=== PATIENT | female | born 1980 | race Caucasian/White ===

== ENCOUNTER 2021-06-11 09:51 | Inpatient (IN) ==
[2021-06-11] MEDS ORDERED: methylPREDNISolone 125 MG/2 ML VIAL IVP ONE (09:57)
[2021-06-11] MEDS ORDERED: Ipratropium/Albuterol Neb 3 ML IH ONE (09:57)
[2021-06-11 10:14] LABS: ABG Base Excess 6 mEq/L (-2 to 3); ABG HCO3 32 mEq/L (21-27); ABG Oxygen Saturation 96 % (95-98); ABG PCO2 52 mmHg (35-45); ABG PH 7.39 pH Units (7.32-7.45); ABG PO2 81 mmHg (85-104); ABG TCO2 33 mEq/L (20-26)
[2021-06-11] MEDS ORDERED: Isovue-370 500 ML BOTTLE IVP ONE (10:17)
[2021-06-11 10:29] LABS: Basophils # 0.1 K/mcL (0.0-0.2); Basophils % 0.4 %; Eosinophils # 0.4 K/mcL (0.0-0.6); Eosinophils % 1.8 %; Hematocrit 39.9 % (35.3-44.9); Hemoglobin 11.9 g/dL (11.5-15.4); Immature Granulocytes % 1.1 % (0-4); Lymphocytes # 5.4 K/mcL (0.6-4.6); Lymphocytes % 27.5 %; Mean Corpuscular HGB Conc 29.8 g/dL (31.6-35.5); Mean Corpuscular Hemoglobin 23.1 pg (28.0-33.3); Mean Corpuscular Volume 77.3 fL (83.0-100.0); Monocytes # 1.1 K/mcL (0.0-1.3); Monocytes % 5.4 %; Neutrophils # 12.6 K/mcL (1.6-8.9); Platelet Count 382 K/mcL (140-400); Red Blood Count 5.16 M/mcL (3.82-4.97); Red Cell Distribution Width 17.3 % (11.5-14.5); Segmented Neutrophils % 63.8 %; White Blood Count 19.7 K/mcL (4.3-11.1)
[2021-06-11 10:31] LABS: Prothrombin Time 10.9 Seconds (9.4-12.1)
[2021-06-11 10:33] LABS: Activated Partial Thrombo Time 28.2 Seconds (26.0-36.0)
[2021-06-11] MEDS ORDERED: levoFLOXacin 750 MG/150 ML 750 MG/150 ML BAG IVPB ONE (10:41)
[2021-06-11] MEDS ORDERED: 0.9 % Sodium Chloride 1,000 ML IV ONE (10:41)
[2021-06-11 10:42] LABS: Alanine Aminotransferase 18 Units/L (7-52); Albumin 3.6 g/dL (3.5-5.7); Albumin/Globulin Ratio 1.2 (1.1-2.2); Alkaline Phosphatase 73 Units/L (34-104); Aspartate Amino Transferase 10 Units/L (13-39); BUN/Creatinine Ratio 15 (6-26); Bilirubin,Indirect 0.3 mg/dL (0.0-1.0); Bilirubin,Total 0.3 mg/dL (0.3-1.0); Blood Urea Nitrogen 15 mg/dL (6-20); Calcium 9.1 mg/dL (8.6-10.3); Carbon Dioxide 30 mEq/L (23-29); Chloride 99 mEq/L (98-107); Globulin 3.1 g/dL (2.4-3.5); Glucose 171 mg/dL (70-105); Osmolality,Calculated 289 (280-300); Potassium 4.1 mEq/L (3.5-5.1); Sodium 137 mEq/L (136-145); Total Protein 6.7 g/dL (6.4-8.9); Troponin I < 0.03 ng/mL (< 0.04); eGFR For African Americans > 60 (> 60); eGFR For Non-African Americans > 60 (> 60)
[2021-06-11 11:10] LABS: Large Platelets Present (Not Present); Platelet Estimate Normal (Normal)
[2021-06-11 11:11] LABS: Anisocytosis 1+ (Not Present)
[2021-06-11 11:35] LABS: Influenza A PCR Negative (Negative); Influenza B PCR Negative (Negative); Resp. Syncytial Virus PCR Negative (Negative)
[2021-06-11 11:39] LABS: SARS-CoV-2 by PCR (In House) Negative (Negative)
[2021-06-11] MEDS ORDERED: Albuterol 2.5 MG/3 ML NEBULIZER IH PRN (14:09)
[2021-06-11] MEDS ORDERED: Naloxone 0.4 MG/ML INJ IVP PRN (14:12)
[2021-06-11] MEDS ORDERED: Acetaminophen 325 MG TABLET PO PRN (14:12)
[2021-06-11] MEDS ORDERED: *HR* Dextrose 50 % in Water (Syg) 50 ML SYRINGE IVP PRN (14:15)
[2021-06-11] MEDS ORDERED: Dextrose 4 GM Chewable Tablets PO PRN ×2 (14:15)
[2021-06-11] MEDS ORDERED: D5% in Water 1,000 ML IVC PRN (14:15)
[2021-06-11 15:26] LABS: Adenovirus Not Detected (Not Detect); Bordetella Pertussis Not Detected (Not Detect); Chlamydophila pneumoniae Not Detected (Not Detect); Coronavirus 229E Not Detected (Not Detect); Coronavirus HKU1 Not Detected (Not Detect); Coronavirus NL63 Not Detected (Not Detect); Coronavirus OC43 Not Detected (Not Detect); Human Metapneumovirus Not Detected (Not Detect); Human Rhinovirus/Enterovirus Not Detected (Not Detect); Influenza A Subtype 2009 H1 Not Detected (Not Detect); Influenza B Not Detected (Not Detect); Mycoplasma pneumoniae Not Detected (Not Detect); Parainfluenza Virus 1 Not Detected (Not Detect); Parainfluenza Virus 2 Not Detected (Not Detect); Parainfluenza Virus 3 DETECTED (Not Detect); Parainfluenza Virus 4 Not Detected (Not Detect); Respiratory Syncytial Virus Not Detected (Not Detect); SARS-CoV-2 Not Detected (Not Detect)
[2021-06-11] MEDS: Albuterol 2.5 MG/3 ML NEBULIZER IH SCH ×2 (15:36→20:37)
[2021-06-11] MEDS: MethylPREDNISolone 40 MG/ML VIAL IVP SCH ×2 (15:46→20:47)
[2021-06-11] MEDS ORDERED: Vancomycin 2,000 MG/520 ML IV.SOLN IVPB SCH (16:00)
[2021-06-11 18:47] LABS: VBG HCO3 27 mEq/L (21-27); VBG PCO2 36 mmHg (41-51); VBG PH 7.48 pH Units (7.32-7.42); VBG PO2 121 mmHg (25-50)
[2021-06-11] MEDS: Insulin LISPRO 300 UNITS/3 ML VIAL SUBQ SCH (19:51)
[2021-06-11] MEDS: *HR* Heparin 5,000 UNIT/ML VIAL SQ SCH (19:51)
[2021-06-12] MEDS: Albuterol 2.5 MG/3 ML NEBULIZER IH SCH ×2 (00:03→04:16)
[2021-06-12] MEDS: Insulin LISPRO 300 UNITS/3 ML VIAL SUBQ SCH ×3 (02:02→17:41)
[2021-06-12] MEDS ORDERED: Vancomycin 2,000 MG/520 ML IV.SOLN IVPB SCH (06:00)
[2021-06-12] MEDS: MethylPREDNISolone 40 MG/ML VIAL IVP SCH ×3 (06:15→21:40)
[2021-06-12] MEDS: *HR* Heparin 5,000 UNIT/ML VIAL SQ SCH ×2 (06:15→21:41)
[2021-06-12 06:44] LABS: Basophils % 0.1 %; Hemoglobin 11.7 g/dL (11.5-15.4); Immature Granulocytes % 1.2 % (0-4); Lymphocytes # 2.3 K/mcL (0.6-4.6); Lymphocytes % 14.9 %; Mean Corpuscular Hemoglobin 23.3 pg (28.0-33.3); Mean Corpuscular Volume 77.7 fL (83.0-100.0); Mean Platelet Volume 10.9 fL (9.4-12.4); Monocytes # 0.8 K/mcL (0.0-1.3); Monocytes % 4.8 %; Neutrophils # 12.4 K/mcL (1.6-8.9); Platelet Count 367 K/mcL (140-400); Red Blood Count 5.02 M/mcL (3.82-4.97); Red Cell Distribution Width 17.1 % (11.5-14.5); White Blood Count 15.7 K/mcL (4.3-11.1)
[2021-06-12 07:08] LABS: Alanine Aminotransferase 16 Units/L (7-52); Albumin 3.8 g/dL (3.5-5.7); Albumin/Globulin Ratio 1.4 (1.1-2.2); Alkaline Phosphatase 69 Units/L (34-104); Aspartate Amino Transferase 7 Units/L (13-39); BUN/Creatinine Ratio 18 (6-26); Bilirubin,Total 0.3 mg/dL (0.3-1.0); Blood Urea Nitrogen 12 mg/dL (6-20); Calcium 9.1 mg/dL (8.6-10.3); Carbon Dioxide 30 mEq/L (23-29); Chloride 99 mEq/L (98-107); Globulin 2.7 g/dL (2.4-3.5); Glucose 177 mg/dL (70-105); Osmolality,Calculated 290 (280-300); Sodium 138 mEq/L (136-145); Total Protein 6.5 g/dL (6.4-8.9); eGFR For African Americans > 60 (> 60); eGFR For Non-African Americans > 60 (> 60)
[2021-06-12] MEDS ORDERED: Ipratropium/Albuterol Neb 3 ML ONE (07:36)
[2021-06-12] MEDS: Ipratropium/Albuterol Neb 3 ML IH SCH ×4 (08:07→20:24)
[2021-06-12] MEDS: levoFLOXacin 750 MG/150 ML 750 MG/150 ML BAG IVPB SCH (09:22)
[2021-06-12] MEDS: Chlorhexidine Rinse 15 ML MOUTHWASH MM SCH ×2 (09:23→21:40)
[2021-06-12] MEDS: Lactobacillus 1 EACH CAP.SPRINK PO SCH ×2 (09:23→21:40)
[2021-06-12] MEDS: FLUoxetine 20 MG CAPSULE PO SCH (09:23)
[2021-06-12] MEDS: Furosemide 40 MG TABLET PO SCH (09:23)
[2021-06-12 09:34] LABS: Estimated Average Glucose 148 mg/dl; Hemoglobin A1C 6.8 %
[2021-06-12] MEDS ORDERED: Dextrose 4 GM Chewable Tablets PO PRN ×2 (10:54)
[2021-06-12] MEDS ORDERED: D5% in Water 1,000 ML IVC PRN (10:54)
[2021-06-12] MEDS ORDERED: *HR* Dextrose 50 % in Water (Syg) 50 ML SYRINGE IVP PRN (10:54)
[2021-06-12] MEDS: Budesonide/Formoterol 160/4.5 1 PUFF INH IH SCH ×2 (11:21→20:24)
[2021-06-12] MEDS ORDERED: Insulin LISPRO 300 UNITS/3 ML VIAL SUBQ SCH ×2 (11:30→21:00)
[2021-06-12] MEDS ORDERED: Insulin Human Regular 5 UNIT in 0.9 % Sodium Chloride 10 ML IV ONE (11:47)
[2021-06-12] MEDS: Insulin DETEMIR 100 UNIT/ML X5UNITS SUBQ SCH (21:41)
[2021-06-13] MEDS: Ipratropium/Albuterol Neb 3 ML IH SCH ×7 (00:14→23:45)
[2021-06-13] MEDS: Ondansetron 4 MG/2 ML VIAL IVP PRN (03:55)
[2021-06-13] MEDS: MethylPREDNISolone 40 MG/ML VIAL IVP SCH (06:11)
[2021-06-13] MEDS: *HR* Heparin 5,000 UNIT/ML VIAL SQ SCH ×3 (06:11→20:32)
[2021-06-13 06:18] LABS: Basophils % 0.1 %; Hematocrit 36.9 % (35.3-44.9); Hemoglobin 10.9 g/dL (11.5-15.4); Immature Granulocytes % 1.4 % (0-4); Lymphocytes % 16.2 %; Mean Corpuscular HGB Conc 29.5 g/dL (31.6-35.5); Mean Corpuscular Volume 77.8 fL (83.0-100.0); Mean Platelet Volume 10.7 fL (9.4-12.4); Monocytes # 1.2 K/mcL (0.0-1.3); Monocytes % 6.2 %; Neutrophils # 14.1 K/mcL (1.6-8.9); Platelet Count 358 K/mcL (140-400); Red Blood Count 4.74 M/mcL (3.82-4.97); Red Cell Distribution Width 17.2 % (11.5-14.5); Segmented Neutrophils % 76.1 %; White Blood Count 18.6 K/mcL (4.3-11.1)
[2021-06-13 06:39] LABS: Magnesium 2.1 mg/dL (1.6-2.6)
[2021-06-13 06:40] LABS: Alanine Aminotransferase 17 Units/L (7-52); Albumin 3.6 g/dL (3.5-5.7); Albumin/Globulin Ratio 1.4 (1.1-2.2); Alkaline Phosphatase 63 Units/L (34-104); Aspartate Amino Transferase 9 Units/L (13-39); BUN/Creatinine Ratio 24 (6-26); Bilirubin,Total 0.3 mg/dL (0.3-1.0); Blood Urea Nitrogen 16 mg/dL (6-20); Calcium 8.9 mg/dL (8.6-10.3); Carbon Dioxide 31 mEq/L (23-29); Chloride 100 mEq/L (98-107); Globulin 2.5 g/dL (2.4-3.5); Glucose 206 mg/dL (70-105); Osmolality,Calculated 293 (280-300); Potassium 4.1 mEq/L (3.5-5.1); Sodium 138 mEq/L (136-145); Total Protein 6.1 g/dL (6.4-8.9); eGFR For African Americans > 60 (> 60); eGFR For Non-African Americans > 60 (> 60)
[2021-06-13 06:52] LABS: Thyroid Stimulating Hormone 1.074 mcIU/mL (0.340-5.600)
[2021-06-13 07:02] LABS: Folate 9.4 ng/mL (3.0-16.0)
[2021-06-13] MEDS: Budesonide/Formoterol 160/4.5 1 PUFF INH IH SCH ×2 (08:25→20:14)
[2021-06-13] MEDS: Lactobacillus 1 EACH CAP.SPRINK PO SCH ×2 (10:24→20:32)
[2021-06-13] MEDS: FLUoxetine 20 MG CAPSULE PO SCH (10:24)
[2021-06-13] MEDS: Chlorhexidine Rinse 15 ML MOUTHWASH MM SCH (10:24)
[2021-06-13] MEDS: Furosemide 40 MG TABLET PO SCH (10:24)
[2021-06-13] MEDS: levoFLOXacin 750 MG/150 ML 750 MG/150 ML BAG IVPB SCH (10:25)
[2021-06-13] MEDS: Insulin LISPRO 300 UNITS/3 ML VIAL SUBQ SCH ×3 (10:25→17:13)
[2021-06-13] MEDS: Insulin DETEMIR 100 UNIT/ML X5UNITS SUBQ SCH ×2 (10:25→20:33)
[2021-06-13] MEDS: ALPRAZolam 0.5 MG TABLET PO PRN (17:17)
[2021-06-14] MEDS: Ipratropium/Albuterol Neb 3 ML IH SCH ×5 (03:52→20:43)
[2021-06-14] MEDS: *HR* Heparin 5,000 UNIT/ML VIAL SQ SCH ×3 (05:53→20:48)
[2021-06-14 06:11] LABS: Basophils % 0.2 %; Eosinophils # 0.1 K/mcL (0.0-0.6); Eosinophils % 0.6 %; Hematocrit 36.5 % (35.3-44.9); Hemoglobin 10.8 g/dL (11.5-15.4); Immature Granulocytes % 1.1 % (0-4); Lymphocytes # 6.9 K/mcL (0.6-4.6); Lymphocytes % 41.3 %; Mean Corpuscular HGB Conc 29.6 g/dL (31.6-35.5); Mean Corpuscular Hemoglobin 23.1 pg (28.0-33.3); Mean Platelet Volume 10.8 fL (9.4-12.4); Monocytes # 1.1 K/mcL (0.0-1.3); Monocytes % 6.7 %; Platelet Count 320 K/mcL (140-400); Red Blood Count 4.68 M/mcL (3.82-4.97); Red Cell Distribution Width 17.5 % (11.5-14.5); Segmented Neutrophils % 50.1 %; White Blood Count 16.7 K/mcL (4.3-11.1)
[2021-06-14 06:15] LABS: Neutrophils # 8.4 K/mcL (1.6-8.9)
[2021-06-14 06:27] LABS: Anisocytosis 1+ (Not Present); Microcytosis Present (Not Present); Platelet Estimate Normal (Normal)
[2021-06-14 07:11] LABS: Phosphorous 4.1 mg/dL (2.7-4.5)
[2021-06-14 07:26] LABS: Alanine Aminotransferase 18 Units/L (7-52); Albumin 3.4 g/dL (3.5-5.7); Albumin/Globulin Ratio 1.5 (1.1-2.2); Alkaline Phosphatase 57 Units/L (34-104); Aspartate Amino Transferase 10 Units/L (13-39); BUN/Creatinine Ratio 27 (6-26); Bilirubin,Total 0.3 mg/dL (0.3-1.0); Blood Urea Nitrogen 19 mg/dL (6-20); Calcium 8.7 mg/dL (8.6-10.3); Carbon Dioxide 31 mEq/L (23-29); Chloride 100 mEq/L (98-107); Globulin 2.3 g/dL (2.4-3.5); Glucose 132 mg/dL (70-105); Osmolality,Calculated 296 (280-300); Potassium 3.8 mEq/L (3.5-5.1); Sodium 141 mEq/L (136-145); Total Protein 5.7 g/dL (6.4-8.9); eGFR For African Americans > 60 (> 60); eGFR For Non-African Americans > 60 (> 60)
[2021-06-14] MEDS: Budesonide/Formoterol 160/4.5 1 PUFF INH IH SCH ×2 (07:40→20:43)
[2021-06-14] MEDS: predniSONE 20 MG TABLET PO SCH (08:58)
[2021-06-14] MEDS: FLUoxetine 20 MG CAPSULE PO SCH (08:58)
[2021-06-14] MEDS: Furosemide 40 MG TABLET PO SCH (08:59)
[2021-06-14] MEDS: Lactobacillus 1 EACH CAP.SPRINK PO SCH ×2 (08:59→20:48)
[2021-06-14] MEDS: Insulin DETEMIR 100 UNIT/ML X5UNITS SUBQ SCH ×2 (08:59→20:48)
[2021-06-14] MEDS: Insulin LISPRO 300 UNITS/3 ML VIAL SUBQ SCH ×3 (08:59→17:21)
[2021-06-14] MEDS: levoFLOXacin 750 MG/150 ML 750 MG/150 ML BAG IVPB SCH (08:59)
[2021-06-14] MEDS: ALPRAZolam 0.5 MG TABLET PO PRN ×2 (12:33→20:48)
[2021-06-14] MEDS: Ondansetron 4 MG/2 ML VIAL IVP PRN (12:38)
[2021-06-15] MEDS: Ipratropium/Albuterol Neb 3 ML IH SCH ×6 (00:55→20:26)
[2021-06-15] MEDS: *HR* Heparin 5,000 UNIT/ML VIAL SQ SCH ×2 (06:09→13:26)
[2021-06-15 06:43] LABS: Phosphorous 4.1 mg/dL (2.7-4.5)
[2021-06-15] MEDS: Insulin LISPRO 300 UNITS/3 ML VIAL SUBQ SCH ×2 (07:32→13:26)
[2021-06-15] MEDS: Budesonide/Formoterol 160/4.5 1 PUFF INH IH SCH ×2 (07:39→20:26)
[2021-06-15 07:42] LABS: Mycoplasma pneumoniae IgG 0.07 U/L (<=0.09)
[2021-06-15] MEDS: predniSONE 20 MG TABLET PO SCH (08:33)
[2021-06-15] MEDS: Lactobacillus 1 EACH CAP.SPRINK PO SCH (08:33)
[2021-06-15] MEDS: Furosemide 40 MG TABLET PO SCH (08:33)
[2021-06-15] MEDS: FLUoxetine 20 MG CAPSULE PO SCH (08:33)
[2021-06-15] MEDS: levoFLOXacin 750 MG/150 ML 750 MG/150 ML BAG IVPB SCH (08:35)
[2021-06-15] MEDS: Insulin DETEMIR 100 UNIT/ML X5UNITS SUBQ SCH (08:37)
[2021-06-15 11:46] VITALS: BP 114/71; PULSE 91; TEMP 97.3
[2021-06-15 18:15] VITALS: O2SAT 91
== END 2021-06-15 19:30 | disposition home or self-care (01) | DRG 720 ==
LOC: EMEROOARM 09:51 → 2NENU 09:51 → SUATTDRO 14:16 → 2NENU 17:50 → SUATTDRO 06-12 11:38
PROVIDERS: ADMIT Internal Medicine; ATTEND Family Medicine

== ENCOUNTER 2021-08-21 13:21 | Inpatient (IN) ==
[2021-08-21] MEDS: 0.9 % Sodium Chloride 1,000 ML IVC SCH ×3 (13:25→14:13)
[2021-08-21] MEDS ORDERED: Ketamine *HR* 500 MG/10 ML MDV ONE (13:27)
[2021-08-21 13:32] LABS: ABG Base Excess -21 mEq/L (-2 to 3); ABG Chloride 102 mEq/L (98-107); ABG Glucose > 700 mg/dL (60-95); ABG HCO3 8 mEq/L (21-27); ABG Ionized Calcium 1.31 mmol/L (1.15-1.35); ABG Oxygen Saturation 99 % (95-98); ABG PCO2 29 mmHg (35-45); ABG PH 7.05 pH Units (7.32-7.45); ABG PO2 221 mmHg (85-104); ABG TCO2 9 mEq/L (20-26)
[2021-08-21] MEDS ORDERED: Ketamine *HR* 500 MG/10 ML MDV IVP ONE (13:42)
[2021-08-21] MEDS ORDERED: *HR* EPINEPHrine 100 MCG/10 ML SYRINGE IVP ONE (13:45)
[2021-08-21] MEDS ORDERED: *HR* Rocuronium Bromide 50 MG/5 ML VIAL IVP ONE (13:48)
[2021-08-21] MEDS ORDERED: *HR* Midazolam HCl 2 MG/2 ML VIAL IVP ONE ×2 (13:48→16:17)
[2021-08-21] MEDS ORDERED: Vancomycin 2,000 MG/520 ML IV.SOLN IVPB ONE (13:52)
[2021-08-21] MEDS ORDERED: Piperacillin/Tazobactam 3.375 GM in 0.9 % Sodium Chloride Mini Bag 100 ML IVPB ONE (13:52)
[2021-08-21] MEDS ORDERED: 0.9 % Sodium Chloride 1,000 ML ONE ×2 (13:52→18:15)
[2021-08-21] MEDS ORDERED: *HR* EPINEPHrine 100 MCG/10 ML SYRINGE IVP PRN (13:52)
[2021-08-21] MEDS ORDERED: *HR* Dextrose 50 % in Water (Syg) 50 ML SYRINGE IVP PRN ×2 (13:53→17:47)
[2021-08-21] MEDS ORDERED: 0.9 % Sodium Chloride 250 ML ONE (13:54)
[2021-08-21] MEDS ORDERED: Iopamidol - 370 500 ML MLS IVP ONE (13:55)
[2021-08-21] MEDS ORDERED: *HR* Norepinephrine 4 MG/4 ML VIAL IVC ONE (13:55)
[2021-08-21] MEDS ORDERED: 0.9 % Sodium Chloride 1,000 ML IVC ONE (14:00)
[2021-08-21] MEDS ORDERED: *HR* FentaNYL (PF) 1,000 MCG/20 ML VIAL ONE (14:06)
[2021-08-21 14:16] LABS: Amphetamine Screen,Urine Negative ng/mL (Cutoff=1000); Barbiturate Screen,Urine Negative ng/mL (Cutoff=200); Benzodiazepines Screen,Urine Negative ng/mL (Cutoff=200); Cannabinoid Screen,Urine Negative ng/mL (Cutoff = 50); Cocaine Screen,Urine Negative ng/mL (Cutoff= 300); Opiate Screen,Urine Negative ng/mL (Cutoff=300); Phencyclidine Screen,Urine Negative ng/mL (Cutoff=25)
[2021-08-21 14:19] LABS: Bacteria,Urine Few per hpf (None-Few); Bilirubin,Urine Negative (Negative); Blood,Urine Trace (Negative); Clarity,Urine Clear (Clear); Color,Urine Light-Yellow (Yellow); Glucose,Urine (UA) >=1000 mg/dL (Normal); Ketones,Urine 60 mg/dL (Negative); Leukocyte Esterase,Urine Negative (Negative); Mucus,Urine Few per lpf (None-Few); Nitrite,Urine Negative (Negative); PH,Urine 5.5 pH Units (5.0-8.0); Protein,Urine Trace mg/dL (Neg-Trace); RBC,Urine 0-3 per hpf (0-3); Specific Gravity,Urine 1.028 (1.010-1.025); Squamous Epithelial Cell,Urine Few per hpf (None-Few); Urobilinogen,Urine Normal (Normal)
[2021-08-21] MEDS ORDERED: Cefepime HCl 2,000 MG in 0.9 % Sodium Chloride 10 ML IVP ONE (14:30)
[2021-08-21] MEDS: Norepinephrine 4 MG/254 ML IV.SOLN IVC SCH ×3 (14:33→21:37)
[2021-08-21 14:37] LABS: ABG Base Excess -16 mEq/L (-2 to 3); ABG HCO3 12 mEq/L (21-27); ABG Oxygen Saturation 99 % (95-98); ABG PCO2 35 mmHg (35-45); ABG PH 7.16 pH Units (7.32-7.45); ABG PO2 154 mmHg (85-104); ABG TCO2 13 mEq/L (20-26); Blood Gas Modality ASSIST CONTROL; Blood Gas VT 450 cc
[2021-08-21 14:58] LABS: Hematocrit 48.3 % (35.3-44.9); Hemoglobin 12.3 g/dL (11.5-15.4); Mean Corpuscular HGB Conc 25.5 g/dL (31.6-35.5); Mean Corpuscular Hemoglobin 23.9 pg (28.0-33.3); Mean Platelet Volume 12.8 fL (9.4-12.4); Nucleated Red Blood Cells 0.1 /100 WBC (0); Platelet Count 348 K/mcL (140-400); Red Blood Count 5.14 M/mcL (3.82-4.97); Red Cell Distribution Width 19.9 % (11.5-14.5); White Blood Count 22.8 K/mcL (4.3-11.1)
[2021-08-21] MEDS: FentaNYL (PF) 1,000 MCG/100 ML IV.SOLN IVC SCH ×2 (15:58→23:50)
[2021-08-21 16:03] LABS: Estimated Average Glucose 392 mg/dl; Hemoglobin A1C 15.3 %
[2021-08-21] MEDS ORDERED: *HR* Midazolam HCl 2 MG/2 ML VIAL ONE (16:13)
[2021-08-21 16:22] LABS: Activated Partial Thrombo Time 21.3 Seconds (26.0-36.0); Prothrombin Time 10.7 Seconds (9.4-12.1)
[2021-08-21 17:02] LABS: Anisocytosis 1+ (Not Present); Lymphocytes # 1.4 K/mcL (0.6-4.6); Neutrophils # 21.4 K/mcL (1.6-8.9); Platelet Clumps Few (Not Present); Platelet Estimate Normal (Normal)
[2021-08-21 17:03] LABS: Macrocytosis Present (Not Present)
[2021-08-21 17:08] LABS: Acetaminophen < 10 mcg/mL (10-20); Alanine Aminotransferase 47 Units/L (7-52); Albumin 3.3 g/dL (3.5-5.7); Albumin/Globulin Ratio 1.4 (1.1-2.2); Alkaline Phosphatase 189 Units/L (34-104); Aspartate Amino Transferase 44 Units/L (13-39); BUN/Creatinine Ratio 31 (6-26); Bilirubin,Direct 0.1 mg/dL (0.0-0.2); Bilirubin,Indirect 0.2 mg/dL (0.0-1.0); Bilirubin,Total 0.3 mg/dL (0.3-1.0); Blood Urea Nitrogen 68 mg/dL (6-20); Calcium 10.6 mg/dL (8.6-10.3); Carbon Dioxide 7 mEq/L (23-29); Chloride 96 mEq/L (98-107); Ethanol < 10 mg/dL (Less than 10); Globulin 2.4 g/dL (2.4-3.5); Lipase 568 Units/L (11-82); Magnesium 3.1 mg/dL (1.6-2.6); Osmolality,Calculated 370 (280-300); Phosphorous 8.5 mg/dL (2.7-4.5); Potassium 6.8 mEq/L (3.5-5.1); Salicylate < 2.5 mg/dL (15.0-30.0); Sodium 135 mEq/L (136-145); Total Protein 5.7 g/dL (6.4-8.9); Troponin I 0.03 ng/mL (< 0.04); eGFR For African Americans 30 (> 60); eGFR For Non-African Americans 24 (> 60)
[2021-08-21 17:09] LABS: Glucose 1355 mg/dL (70-105)
[2021-08-21] MEDS: Ringers Solution, Lactated 1,000 ML IVC SCH ×4 (17:16→23:40)
[2021-08-21] MEDS ORDERED: Naloxone 0.4 MG/ML INJ IVP PRN (17:43)
[2021-08-21] MEDS ORDERED: Ringers Solution, Lactated 3,000 ML IVC ONE (17:46)
[2021-08-21] MEDS ORDERED: D5% in 0.45% NACL w KCl 20 MEQ/1,000 ML MLS IVC PRN (17:47)
[2021-08-21] MEDS ORDERED: Insulin Regular, Human 100 UNIT/ML IV PRN (17:47)
[2021-08-21] MEDS ORDERED: Artificial Tears SOLN 15 ML BOTTLE BOTH EYES PRN (17:51)
[2021-08-21 18:23] LABS: ABG Base Excess -15 mEq/L (-2 to 3); ABG HCO3 12 mEq/L (21-27); ABG Oxygen Saturation 97 % (95-98); ABG PCO2 33 mmHg (35-45); ABG PH 7.19 pH Units (7.32-7.45); ABG PO2 112 mmHg (85-104); ABG TCO2 13 mEq/L (20-26); Blood Gas Modality ASSIST CONTROL; Blood Gas VT 450 cc
[2021-08-21] MEDS: Pantoprazole 40 MG VIAL IVP SCH (19:14)
[2021-08-21 20:00] LABS: Phosphorous 5.4 mg/dL (2.7-4.5); Potassium 4.8 mEq/L (3.5-5.1)
[2021-08-21] MEDS: Nystatin POWDER 30 GM BOTTLE TP SCH (20:56)
[2021-08-21] MEDS: Chlorhexidine Rinse 15 ML MOUTHWASH MM SCH (21:33)
[2021-08-21] MEDS: Artificial Tears SOLN 15 ML BOTTLE BOTH EYES SCH (21:40)
[2021-08-21] MEDS ORDERED: Norepinephrine 8 MG in 0.9 % Sodium Chloride 250 ML IVC SCH (21:45)
[2021-08-21 21:50] LABS: Calcium 8.9 mg/dL (8.6-10.3); Potassium 4.2 mEq/L (3.5-5.1)
[2021-08-21 21:51] LABS: ABG Base Excess -7 mEq/L (-2 to 3); ABG HCO3 19 mEq/L (21-27); ABG Oxygen Saturation 92 % (95-98); ABG PCO2 38 mmHg (35-45); ABG PH 7.31 pH Units (7.32-7.45); ABG PO2 70 mmHg (85-104); ABG TCO2 20 mEq/L (20-26); Blood Gas VT 450 cc
[2021-08-21] MEDS ORDERED: *HR* Metoprolol 5 MG/5 ML VIAL IVP ONE (22:44)
[2021-08-21 23:33] LABS: Calcium 8.9 mg/dL (8.6-10.3); Potassium 4.2 mEq/L (3.5-5.1)
[2021-08-21] MEDS: 0.45 % Sodium Chloride w/KCl 20 MEQ/1,000 ML MLS IVC SCH (23:43)
[2021-08-22] MEDS: *HR* Heparin 5,000 UNIT/ML VIAL SQ SCH ×4 (00:17→21:05)
[2021-08-22] MEDS: Artificial Tears SOLN 15 ML BOTTLE BOTH EYES SCH ×7 (00:17→23:03)
[2021-08-22] MEDS: Ringers Solution, Lactated 1,000 ML IVC SCH ×4 (00:44→05:36)
[2021-08-22 01:03] LABS: Calcium 9.3 mg/dL (8.6-10.3); Potassium 4.8 mEq/L (3.5-5.1)
[2021-08-22] MEDS: Norepinephrine 8 MG/250 ML IV.SOLN IVC SCH ×2 (01:53→04:08)
[2021-08-22] MEDS ORDERED: Phenylephrine 20 MG in 0.9 % Sodium Chloride 250 ML IVC SCH (03:15)
[2021-08-22 03:44] LABS: Calcium 9.5 mg/dL (8.6-10.3); Potassium 4.6 mEq/L (3.5-5.1)
[2021-08-22] MEDS: Cefepime HCl 2,000 MG in 0.9 % Sodium Chloride 10 ML IVP SCH ×2 (03:55→14:49)
[2021-08-22 04:05] LABS: ABG Base Excess -3 mEq/L (-2 to 3); ABG HCO3 22 mEq/L (21-27); ABG Oxygen Saturation 92 % (95-98); ABG PCO2 36 mmHg (35-45); ABG PH 7.39 pH Units (7.32-7.45); ABG PO2 65 mmHg (85-104); ABG TCO2 23 mEq/L (20-26); Blood Gas VT 450 cc
[2021-08-22] MEDS: 0.45 % Sodium Chloride w/KCl 20 MEQ/1,000 ML MLS IVC SCH ×2 (04:06→08:38)
[2021-08-22] MEDS ORDERED: Norepinephrine 32 MG/250 ML IV.SOLN IVC SCH (04:45)
[2021-08-22] MEDS: Norepinephrine 4 MG/254 ML IV.SOLN IVC SCH ×12 (05:17→23:40)
[2021-08-22] MEDS: Phenylephrine 100 MG in 0.9 % Sodium Chloride 250 ML IVC SCH ×5 (05:21→23:39)
[2021-08-22 06:12] LABS: Basophils # 0.1 K/mcL (0.0-0.2); Basophils % 0.2 %; Eosinophils % 0.1 %; Hematocrit 41.5 % (35.3-44.9); Hemoglobin 12.9 g/dL (11.5-15.4); Immature Granulocytes % 1.2 % (0-4); Lymphocytes # 1.8 K/mcL (0.6-4.6); Lymphocytes % 7.5 %; Mean Corpuscular HGB Conc 31.1 g/dL (31.6-35.5); Mean Corpuscular Hemoglobin 24.3 pg (28.0-33.3); Mean Platelet Volume 11.6 fL (9.4-12.4); Monocytes # 1.9 K/mcL (0.0-1.3); Monocytes % 7.9 %; Neutrophils # 19.4 K/mcL (1.6-8.9); Platelet Count 234 K/mcL (140-400); Red Cell Distribution Width 19.8 % (11.5-14.5); Segmented Neutrophils % 83.1 %; White Blood Count 23.4 K/mcL (4.3-11.1)
[2021-08-22 06:13] LABS: Mean Corpuscular Volume 78.3 fL (83.0-100.0)
[2021-08-22] MEDS: FentaNYL (PF) 1,000 MCG/100 ML IV.SOLN IVC SCH ×3 (07:31→20:17)
[2021-08-22 07:59] LABS: Albumin/Globulin Ratio 1.4 (1.1-2.2); Bilirubin,Total 0.3 mg/dL (0.3-1.0); Globulin 2.1 g/dL (2.4-3.5); Magnesium 1.7 mg/dL (1.6-2.6); Potassium 4.9 mEq/L (3.5-5.1); Total Protein 5.1 g/dL (6.4-8.9)
[2021-08-22] MEDS: Chlorhexidine Rinse 15 ML MOUTHWASH MM SCH ×2 (08:51→19:05)
[2021-08-22] MEDS: Pantoprazole 40 MG VIAL IVP SCH (08:51)
[2021-08-22] MEDS: Nystatin POWDER 30 GM BOTTLE TP SCH ×2 (08:53→19:26)
[2021-08-22 09:46] LABS: Bilirubin,Indirect 0.3 mg/dL (0.0-1.0)
[2021-08-22 14:19] LABS: Calcium 8.3 mg/dL (8.6-10.3); Potassium 4.7 mEq/L (3.5-5.1)
[2021-08-22 16:45] LABS: Sodium, Urine 13.8 mEq/L
[2021-08-22 18:37] LABS: Calcium 7.8 mg/dL (8.6-10.3); Potassium 5.3 mEq/L (3.5-5.1)
[2021-08-22] MEDS: D5% in 0.45% NACL 1,000 ML IVC PRN (19:04)
[2021-08-22] MEDS: Dexmedetomidine HCl 400 MCG/100 ML MLS IVC SCH (19:24)
[2021-08-22] MEDS ORDERED: Acetaminophen IV 1,000 MG/100 ML BAG IVPB ONE (22:17)
[2021-08-23] MEDS: FentaNYL (PF) 1,000 MCG/100 ML IV.SOLN IVC SCH ×3 (01:07→21:07)
[2021-08-23] MEDS: Dexmedetomidine HCl 400 MCG/100 ML MLS IVC SCH ×7 (01:39→23:05)
[2021-08-23] MEDS: Cefepime HCl 2,000 MG in 0.9 % Sodium Chloride 10 ML IVP SCH ×2 (02:01→14:37)
[2021-08-23 02:56] LABS: VBG Ionized Calcium 1.16 mmol/L (1.15-1.35)
[2021-08-23] MEDS: Norepinephrine 4 MG/254 ML IV.SOLN IVC SCH ×3 (03:03→09:29)
[2021-08-23] MEDS: Artificial Tears SOLN 15 ML BOTTLE BOTH EYES SCH ×6 (03:05→23:06)
[2021-08-23 03:15] LABS: Albumin 2.5 g/dL (3.5-5.7); Bilirubin,Total 0.3 mg/dL (0.3-1.0); Calcium 7.9 mg/dL (8.6-10.3); Globulin 2.4 g/dL (2.4-3.5); Magnesium 1.6 mg/dL (1.6-2.6); Phosphorous 1.2 mg/dL (2.7-4.5); Potassium 4.6 mEq/L (3.5-5.1); Total Protein 4.9 g/dL (6.4-8.9)
[2021-08-23] MEDS: D5% in 0.45% NACL 1,000 ML IVC PRN ×2 (03:29→13:42)
[2021-08-23 04:42] LABS: ABG Base Excess -7 mEq/L (-2 to 3); ABG HCO3 18 mEq/L (21-27); ABG Oxygen Saturation 97 % (95-98); ABG PCO2 31 mmHg (35-45); ABG PH 7.36 pH Units (7.32-7.45); ABG PO2 97 mmHg (85-104); ABG TCO2 19 mEq/L (20-26); Blood Gas VT 450 cc
[2021-08-23] MEDS: *HR* Heparin 5,000 UNIT/ML VIAL SQ SCH ×3 (05:01→21:01)
[2021-08-23 05:09] LABS: Basophils % 0.2 %; Eosinophils % 0.1 %; Hematocrit 38.1 % (35.3-44.9); Immature Granulocytes % 1.7 % (0-4); Lymphocytes # 1.9 K/mcL (0.6-4.6); Lymphocytes % 9.2 %; Mean Corpuscular HGB Conc 29.1 g/dL (31.6-35.5); Mean Corpuscular Hemoglobin 23.8 pg (28.0-33.3); Mean Corpuscular Volume 81.6 fL (83.0-100.0); Mean Platelet Volume 12.1 fL (9.4-12.4); Monocytes # 1.8 K/mcL (0.0-1.3); Monocytes % 8.8 %; Platelet Count 134 K/mcL (140-400); Red Blood Count 4.67 M/mcL (3.82-4.97); White Blood Count 20.2 K/mcL (4.3-11.1)
[2021-08-23 05:12] LABS: Hemoglobin 11.1 g/dL (11.5-15.4); Neutrophils # 16.2 K/mcL (1.6-8.9)
[2021-08-23 05:27] LABS: Anisocytosis 2+ (Not Present); Platelet Estimate Normal (Normal)
[2021-08-23] MEDS: Phenylephrine 100 MG in 0.9 % Sodium Chloride 250 ML IVC SCH ×4 (05:31→21:01)
[2021-08-23] MEDS: Pantoprazole 40 MG VIAL IVP SCH (07:42)
[2021-08-23] MEDS: Chlorhexidine Rinse 15 ML MOUTHWASH MM SCH ×2 (07:42→20:02)
[2021-08-23] MEDS: Nystatin POWDER 30 GM BOTTLE TP SCH ×2 (07:43→20:02)
[2021-08-23 08:43] LABS: Adenovirus Not Detected (Not Detect); Bordetella Pertussis Not Detected (Not Detect); Chlamydophila pneumoniae Not Detected (Not Detect); Coronavirus 229E Not Detected (Not Detect); Coronavirus HKU1 Not Detected (Not Detect); Coronavirus NL63 Not Detected (Not Detect); Coronavirus OC43 Not Detected (Not Detect); Human Metapneumovirus Not Detected (Not Detect); Human Rhinovirus/Enterovirus Not Detected (Not Detect); Influenza A Subtype 2009 H1 Not Detected (Not Detect); Influenza B Not Detected (Not Detect); Mycoplasma pneumoniae Not Detected (Not Detect); Parainfluenza Virus 1 Not Detected (Not Detect); Parainfluenza Virus 2 Not Detected (Not Detect); Parainfluenza Virus 3 Not Detected (Not Detect); Parainfluenza Virus 4 Not Detected (Not Detect); Respiratory Syncytial Virus Not Detected (Not Detect); SARS-CoV-2 Not Detected (Not Detect)
[2021-08-23] MEDS ORDERED: Acetaminophen IV 1,000 MG/100 ML BAG IVPB ONE (10:03)
[2021-08-23 13:19] LABS: Albumin 2.4 g/dL (3.5-5.7); Bilirubin,Total 0.4 mg/dL (0.3-1.0); Calcium 7.6 mg/dL (8.6-10.3); Globulin 2.4 g/dL (2.4-3.5); Potassium 4.8 mEq/L (3.5-5.1); Total Protein 4.8 g/dL (6.4-8.9)
[2021-08-23] MEDS ORDERED: Perflutren Lipid Microsphere 1.3 ML in 0.9 % Sodium Chloride 8.7 ML IVP PRN (13:47)
[2021-08-23] MEDS ORDERED: Furosemide 40 MG/4 ML VIAL IVP ONE (15:18)
[2021-08-23 18:29] LABS: Sodium, Urine 46.6 mEq/L
[2021-08-24] MEDS: Phenylephrine 100 MG in 0.9 % Sodium Chloride 250 ML IVC SCH ×4 (02:12→19:58)
[2021-08-24] MEDS: Cefepime HCl 2,000 MG in 0.9 % Sodium Chloride 10 ML IVP SCH (02:13)
[2021-08-24] MEDS: Artificial Tears SOLN 15 ML BOTTLE BOTH EYES SCH ×6 (03:02→23:47)
[2021-08-24] MEDS: D5% in 0.45% NACL 1,000 ML IVC PRN ×2 (03:03→09:03)
[2021-08-24 03:04] LABS: Basophils # 0.1 K/mcL (0.0-0.2); Basophils % 0.4 %; Eosinophils % 0.2 %; Hemoglobin 11.1 g/dL (11.5-15.4); Immature Granulocytes % 1.3 % (0-4); Immature Platelets 8.6 % (1.1-6.1); Lymphocytes # 2.8 K/mcL (0.6-4.6); Lymphocytes % 14.2 %; Mean Corpuscular HGB Conc 29.2 g/dL (31.6-35.5); Mean Corpuscular Hemoglobin 24.1 pg (28.0-33.3); Mean Corpuscular Volume 82.4 fL (83.0-100.0); Mean Platelet Volume 11.2 fL (9.4-12.4); Monocytes # 1.2 K/mcL (0.0-1.3); Monocytes % 5.9 %; Neutrophils # 15.6 K/mcL (1.6-8.9); Nucleated Red Blood Cells 0.2 /100 WBC (0); Red Blood Count 4.61 M/mcL (3.82-4.97); Red Cell Distribution Width 20.3 % (11.5-14.5)
[2021-08-24 03:06] LABS: Platelet Count 80 K/mcL (140-400)
[2021-08-24 03:08] LABS: VBG Ionized Calcium 1.12 mmol/L (1.15-1.35)
[2021-08-24] MEDS: Dexmedetomidine HCl 400 MCG/100 ML MLS IVC SCH ×5 (03:18→21:37)
[2021-08-24 03:21] LABS: Albumin 2.4 g/dL (3.5-5.7); Albumin/Globulin Ratio 1.1 (1.1-2.2); Bilirubin,Total 0.4 mg/dL (0.3-1.0); Calcium 7.3 mg/dL (8.6-10.3); Globulin 2.2 g/dL (2.4-3.5); Magnesium 1.7 mg/dL (1.6-2.6); Phosphorous 2.8 mg/dL (2.7-4.5); Potassium 5.1 mEq/L (3.5-5.1); Total Protein 4.6 g/dL (6.4-8.9)
[2021-08-24 03:25] LABS: Platelet Estimate Decreased (Normal)
[2021-08-24 03:26] LABS: Anisocytosis 1+ (Not Present)
[2021-08-24] MEDS ORDERED: Vancomycin 500 MG in 0.9 % Sodium Chloride Mini Bag 100 ML IVPB ONE (05:00)
[2021-08-24] MEDS: *HR* Heparin 5,000 UNIT/ML VIAL SQ SCH (05:01)
[2021-08-24 05:48] LABS: ABG Base Excess -14 mEq/L (-2 to 3); ABG HCO3 14 mEq/L (21-27); ABG Oxygen Saturation 92 % (95-98); ABG PCO2 37 mmHg (35-45); ABG PH 7.17 pH Units (7.32-7.45); ABG PO2 81 mmHg (85-104); ABG TCO2 15 mEq/L (20-26); Blood Gas Modality AF; Blood Gas VT 480 cc
[2021-08-24] MEDS ORDERED: Sodium Bicarbonate 75 MEQ in 0.45 % Sodium Chloride 1,000 ML IVC SCH (06:22)
[2021-08-24] MEDS: Chlorhexidine Rinse 15 ML MOUTHWASH MM SCH ×2 (07:28→19:54)
[2021-08-24] MEDS: Pantoprazole 40 MG VIAL IVP SCH (07:28)
[2021-08-24] MEDS: Nystatin POWDER 30 GM BOTTLE TP SCH ×2 (07:35→19:55)
[2021-08-24] MEDS: FentaNYL (PF) 1,000 MCG/100 ML IV.SOLN IVC SCH ×2 (07:45→19:55)
[2021-08-24] MEDS: Sodium Bicarbonate 150 MEQ in D5% in Water 1,000 ML IVC SCH ×2 (09:50→21:37)
[2021-08-24 13:54] LABS: ABG Base Excess -11 mEq/L (-2 to 3); ABG HCO3 15 mEq/L (21-27); ABG Oxygen Saturation 97 % (95-98); ABG PCO2 35 mmHg (35-45); ABG PH 7.26 pH Units (7.32-7.45); ABG PO2 105 mmHg (85-104); ABG TCO2 17 mEq/L (20-26); Blood Gas VT 480 cc
[2021-08-24 17:31] LABS: ABG Base Excess -10 mEq/L (-2 to 3); ABG HCO3 18 mEq/L (21-27); ABG Oxygen Saturation 91 % (95-98); ABG PCO2 43 mmHg (35-45); ABG PH 7.22 pH Units (7.32-7.45); ABG PO2 74 mmHg (85-104); ABG TCO2 19 mEq/L (20-26); Blood Gas VT 480 cc
[2021-08-24] MEDS ORDERED: 0.9 % Sodium Chloride 1,000 ML ONE (17:45)
[2021-08-24] MEDS: SODIUM CHLORIDE 0.9% IVP SCH (19:54)
[2021-08-24] MEDS: MEROPENEM IVP SCH (19:54)
[2021-08-24 22:41] LABS: Calcium 7.1 mg/dL (8.6-10.3); Phosphorous 5.6 mg/dL (2.7-4.5); Potassium 4.7 mEq/L (3.5-5.1)
[2021-08-25] MEDS: Phenylephrine 100 MG in 0.9 % Sodium Chloride 250 ML IVC SCH ×4 (00:09→19:53)
[2021-08-25 01:31] LABS: ABG Base Excess -9 mEq/L (-2 to 3); ABG HCO3 17 mEq/L (21-27); ABG Oxygen Saturation 97 % (95-98); ABG PCO2 33 mmHg (35-45); ABG PH 7.31 pH Units (7.32-7.45); ABG PO2 96 mmHg (85-104); ABG TCO2 18 mEq/L (20-26); Blood Gas Modality ASSIST CONTROL; Blood Gas VT 480 cc
[2021-08-25] MEDS: FentaNYL (PF) 1,000 MCG/100 ML IV.SOLN IVC SCH ×3 (02:48→18:32)
[2021-08-25] MEDS: Dexmedetomidine HCl 400 MCG/100 ML MLS IVC SCH ×4 (02:49→19:14)
[2021-08-25] MEDS: Artificial Tears SOLN 15 ML BOTTLE BOTH EYES SCH ×6 (03:17→23:11)
[2021-08-25 03:21] LABS: Hematocrit 39.1 % (35.3-44.9); Hemoglobin 11.7 g/dL (11.5-15.4); Mean Corpuscular HGB Conc 29.9 g/dL (31.6-35.5)
[2021-08-25 03:23] LABS: Basophils # 0.1 K/mcL (0.0-0.2); Basophils % 0.4 %; Eosinophils # 0.1 K/mcL (0.0-0.6); Eosinophils % 0.3 %; Immature Platelets 12.6 % (1.1-6.1); Lymphocytes # 1.8 K/mcL (0.6-4.6); Mean Corpuscular Hemoglobin 24.1 pg (28.0-33.3); Mean Corpuscular Volume 80.6 fL (83.0-100.0); Monocytes # 2.4 K/mcL (0.0-1.3); Monocytes % 12.5 %; Neutrophils # 14.9 K/mcL (1.6-8.9); Nucleated Red Blood Cells 0.4 /100 WBC (0); Red Blood Count 4.85 M/mcL (3.82-4.97); Red Cell Distribution Width 20.4 % (11.5-14.5); Segmented Neutrophils % 76.8 %; White Blood Count 19.4 K/mcL (4.3-11.1)
[2021-08-25 03:28] LABS: Platelet Count 84 K/mcL (140-400)
[2021-08-25 03:33] LABS: INR 1.3; Prothrombin Time 14.4 Seconds (9.4-12.1)
[2021-08-25 03:35] LABS: Albumin 2.2 g/dL (3.5-5.7); Albumin/Globulin Ratio 0.9 (1.1-2.2); Bilirubin,Direct 0.1 mg/dL (0.0-0.2); Bilirubin,Indirect 0.3 mg/dL (0.0-1.0); Bilirubin,Total 0.4 mg/dL (0.3-1.0); Calcium 7.1 mg/dL (8.6-10.3); Globulin 2.4 g/dL (2.4-3.5); Phosphorous 5.6 mg/dL (2.7-4.5); Potassium 4.8 mEq/L (3.5-5.1); Total Protein 4.6 g/dL (6.4-8.9)
[2021-08-25 05:20] LABS: ABG Base Excess -6 mEq/L (-2 to 3); ABG HCO3 17 mEq/L (21-27); ABG Oxygen Saturation 99 % (95-98); ABG PCO2 25 mmHg (35-45); ABG PH 7.43 pH Units (7.32-7.45); ABG PO2 119 mmHg (85-104); ABG TCO2 17 mEq/L (20-26); Blood Gas VT 480 cc
[2021-08-25] MEDS: MEROPENEM IVP SCH ×2 (06:10→18:30)
[2021-08-25] MEDS: SODIUM CHLORIDE 0.9% IVP SCH ×2 (06:10→18:30)
[2021-08-25] MEDS: Pantoprazole 40 MG VIAL IVP SCH (07:46)
[2021-08-25] MEDS: Chlorhexidine Rinse 15 ML MOUTHWASH MM SCH ×2 (07:54→19:54)
[2021-08-25] MEDS ORDERED: 0.9 % Sodium Chloride 1,000 ML ONE (09:10)
[2021-08-25] MEDS: Nystatin POWDER 30 GM BOTTLE TP SCH ×2 (12:01→19:54)
[2021-08-25] MEDS: Sodium Bicarbonate 150 MEQ in D5% in Water 1,000 ML IVC SCH ×2 (12:12→20:11)
[2021-08-25] MEDS ORDERED: Furosemide 240 MG in 0.9 % Sodium Chloride 96 ML IVC SCH (18:00)
[2021-08-25] MEDS: Norepinephrine 4 MG/254 ML IV.SOLN IVC SCH (23:11)
[2021-08-26] MEDS: Dexmedetomidine HCl 400 MCG/100 ML MLS IVC SCH ×5 (01:15→22:30)
[2021-08-26] MEDS: FentaNYL (PF) 1,000 MCG/100 ML IV.SOLN IVC SCH ×3 (02:08→19:00)
[2021-08-26] MEDS: Artificial Tears SOLN 15 ML BOTTLE BOTH EYES SCH ×5 (03:35→19:52)
[2021-08-26 03:51] LABS: Nucleated Red Blood Cells 0.2 /100 WBC (0)
[2021-08-26 03:53] LABS: Basophils # 0.1 K/mcL (0.0-0.2); Basophils % 0.4 %; Eosinophils # 0.2 K/mcL (0.0-0.6); Eosinophils % 1.4 %; Hemoglobin 10.6 g/dL (11.5-15.4); Immature Granulocytes % 2.1 % (0-4); Immature Platelets 15.3 % (1.1-6.1); Lymphocytes # 1.8 K/mcL (0.6-4.6); Lymphocytes % 10.6 %; Mean Corpuscular HGB Conc 30.3 g/dL (31.6-35.5); Mean Corpuscular Hemoglobin 23.9 pg (28.0-33.3); Monocytes # 3.4 K/mcL (0.0-1.3); Monocytes % 20.3 %; Red Blood Count 4.43 M/mcL (3.82-4.97); Red Cell Distribution Width 19.9 % (11.5-14.5); Segmented Neutrophils % 65.2 %; White Blood Count 16.9 K/mcL (4.3-11.1)
[2021-08-26 03:56] LABS: VBG Ionized Calcium 1.04 mmol/L (1.15-1.35)
[2021-08-26 04:09] LABS: Albumin 2.1 g/dL (3.5-5.7); Albumin/Globulin Ratio 0.9 (1.1-2.2); Bilirubin,Direct 0.1 mg/dL (0.0-0.2); Bilirubin,Indirect 0.4 mg/dL (0.0-1.0); Bilirubin,Total 0.5 mg/dL (0.3-1.0); Calcium 7.4 mg/dL (8.6-10.3); Globulin 2.4 g/dL (2.4-3.5); Magnesium 1.9 mg/dL (1.6-2.6); Phosphorous 6.1 mg/dL (2.7-4.5); Potassium 4.9 mEq/L (3.5-5.1); Total Protein 4.5 g/dL (6.4-8.9)
[2021-08-26 04:39] LABS: Platelet Count 97 K/mcL (140-400)
[2021-08-26 04:40] LABS: Anisocytosis 2+ (Not Present); Microcytosis Present (Not Present); Platelet Estimate Slight Decrease (Normal)
[2021-08-26] MEDS: MEROPENEM IVP SCH ×2 (05:47→17:30)
[2021-08-26] MEDS: Phenylephrine 100 MG in 0.9 % Sodium Chloride 250 ML IVC SCH ×2 (05:47→16:02)
[2021-08-26] MEDS: Calcium Gluconate 1gm/50mL 1 GM/50 ML BAG IVPB SCH ×2 (05:47→06:15)
[2021-08-26] MEDS: SODIUM CHLORIDE 0.9% IVP SCH ×2 (05:47→17:30)
[2021-08-26] MEDS ORDERED: *HR* Fondaparinux 2.5 MG/0.5 ML SYRINGE SQ SCH (06:00)
[2021-08-26 08:23] LABS: ABG Base Excess -4 mEq/L (-2 to 3); ABG HCO3 21 mEq/L (21-27); ABG Oxygen Saturation 98 % (95-98); ABG PCO2 37 mmHg (35-45); ABG PH 7.37 pH Units (7.32-7.45); ABG PO2 116 mmHg (85-104); ABG TCO2 22 mEq/L (20-26); Blood Gas Modality ASSIST CONTROL; Blood Gas VT 480 cc
[2021-08-26] MEDS: Pantoprazole 40 MG VIAL IVP SCH (08:51)
[2021-08-26] MEDS: Nystatin POWDER 30 GM BOTTLE TP SCH ×2 (09:09→21:26)
[2021-08-26] MEDS ORDERED: Lidocaine -MPF 1% 5 ML AMPUL INFILT ONE (09:28)
[2021-08-26] MEDS: Chlorhexidine Rinse 15 ML MOUTHWASH MM SCH ×2 (11:17→19:52)
[2021-08-26] MEDS ORDERED: 0.9 % Sodium Chloride 1,000 ML PRIME ONE ×2 (12:06)
[2021-08-26] MEDS ORDERED: *HR* Alteplase (Cathflo) 2 MG VIAL IVP PRN (12:06)
[2021-08-26] MEDS ORDERED: Lidocaine/EPI 1:100k 1% 50 ML VIAL ONE (13:51)
[2021-08-26] MEDS ORDERED: Heparin 1,000 UNITS/500 mL 500 ML ONE ×2 (13:51→15:25)
[2021-08-26] MEDS ORDERED: *HR* Heparin 5,000 UNIT/ML VIAL ONE ×2 (13:54→15:35)
[2021-08-26] MEDS ORDERED: *HR* Midazolam HCl 5 MG/5 ML VIAL IVP ONE ×2 (14:59→15:15)
[2021-08-26] MEDS ORDERED: Midazolam HCl 4 MG/2 ML Oral Syringe PO ONE (15:02)
[2021-08-26] MEDS: PrismaSATE BGK 4/2.5 5,000 ML CRRT SCH ×3 (17:54→22:45)
[2021-08-26] MEDS ORDERED: Norepinephrine 4 MG/254 ML IV.SOLN IVC SCH (18:15)
[2021-08-26] MEDS: Norepinephrine 32 MG/250 ML IV.SOLN IVC SCH (20:10)
[2021-08-26 23:38] LABS: Alpha 2 Globulin (PEP) 0.62 g/dL (0.48-1.05); Beta Globulin (PEP) 0.48 g/dL (0.48-1.10)
[2021-08-27] MEDS: PrismaSATE BGK 4/2.5 5,000 ML CRRT SCH ×8 (00:03→19:04)
[2021-08-27] MEDS: Artificial Tears SOLN 15 ML BOTTLE BOTH EYES SCH ×6 (00:04→20:15)
[2021-08-27] MEDS: FentaNYL (PF) 2,500 MCG/50 ML IV.SOLN IVC SCH ×2 (00:30→06:40)
[2021-08-27] MEDS: Dexmedetomidine HCl 400 MCG/100 ML MLS IVC SCH ×3 (01:15→07:09)
[2021-08-27] MEDS: SODIUM CHLORIDE 0.9% IVP SCH ×3 (02:13→18:43)
[2021-08-27] MEDS: MEROPENEM IVP SCH ×3 (02:13→18:43)
[2021-08-27 04:19] LABS: ABG Base Excess -3 mEq/L (-2 to 3); ABG HCO3 23 mEq/L (21-27); ABG Oxygen Saturation 96 % (95-98); ABG PCO2 43 mmHg (35-45); ABG PH 7.33 pH Units (7.32-7.45); ABG PO2 91 mmHg (85-104); ABG TCO2 24 mEq/L (20-26); Blood Gas Modality AF; Blood Gas VT 480 cc
[2021-08-27 05:09] LABS: VBG Ionized Calcium 1.05 mmol/L (1.15-1.35)
[2021-08-27 05:12] LABS: Red Blood Count 4.06 M/mcL (3.82-4.97)
[2021-08-27 05:13] LABS: Hematocrit 31.9 % (35.3-44.9); Hemoglobin 9.8 g/dL (11.5-15.4); Immature Platelets 16.1 % (1.1-6.1); Mean Corpuscular HGB Conc 30.7 g/dL (31.6-35.5); Mean Corpuscular Hemoglobin 24.1 pg (28.0-33.3); Mean Corpuscular Volume 78.6 fL (83.0-100.0); Nucleated Red Blood Cells 0.2 /100 WBC (0); Platelet Count 116 K/mcL (140-400); Red Cell Distribution Width 19.7 % (11.5-14.5); White Blood Count 13.2 K/mcL (4.3-11.1)
[2021-08-27] MEDS: *HR* Heparin 5,000 UNIT/ML VIAL IVP PRN ×2 (05:21→21:47)
[2021-08-27] MEDS: 0.9 % Sodium Chloride 1,000 ML PRIME SCH ×4 (05:22→21:47)
[2021-08-27 05:35] LABS: Albumin 2.1 g/dL (3.5-5.7); Albumin/Globulin Ratio 0.8 (1.1-2.2); Bilirubin,Direct 0.1 mg/dL (0.0-0.2); Bilirubin,Indirect 0.4 mg/dL (0.0-1.0); Bilirubin,Total 0.5 mg/dL (0.3-1.0); Calcium 7.7 mg/dL (8.6-10.3); Globulin 2.6 g/dL (2.4-3.5); Magnesium 2.4 mg/dL (1.6-2.6); Potassium 4.9 mEq/L (3.5-5.1); Total Protein 4.7 g/dL (6.4-8.9)
[2021-08-27 05:40] LABS: Eosinophils # 0.3 K/mcL (0.0-0.6); Lymphocytes # 1.1 K/mcL (0.6-4.6); Monocytes # 2.6 K/mcL (0.0-1.3); Neutrophils # 9.2 K/mcL (1.6-8.9); Platelet Estimate Slight Decrease (Normal)
[2021-08-27] MEDS: *HR* Heparin 5,000 UNIT/ML VIAL SQ SCH ×2 (05:41→18:45)
[2021-08-27] MEDS ORDERED: *HR* Atropine Sulfate 1 MG/10 ML SYRINGE ONE (08:06)
[2021-08-27] MEDS: Chlorhexidine Rinse 15 ML MOUTHWASH MM SCH ×2 (09:03→21:52)
[2021-08-27] MEDS: Pantoprazole 40 MG VIAL IVP SCH (09:03)
[2021-08-27 09:27] LABS: IFE Reflexed IFE Done; Immunoglobulin A 125 mg/dL (68-408); Immunoglobulin G 434 mg/dL (768-1632); Immunoglobulin M 127 mg/dL (35-263)
[2021-08-27] MEDS: Nystatin POWDER 30 GM BOTTLE TP SCH ×2 (09:29→20:15)
[2021-08-27] MEDS: Norepinephrine 32 MG/250 ML IV.SOLN IVC SCH (11:12)
[2021-08-27] MEDS: Sodium Bicarbonate 150 MEQ in D5% in Water 1,000 ML IVC SCH (11:19)
[2021-08-27] MEDS ORDERED: *HR* Heparin 5,000 UNIT/ML VIAL ONE (21:25)
[2021-08-27] MEDS ORDERED: 0.9 % Sodium Chloride 1,000 ML ONE (21:36)
[2021-08-28] MEDS: Artificial Tears SOLN 15 ML BOTTLE BOTH EYES SCH ×7 (00:18→23:42)
[2021-08-28] MEDS: PrismaSATE BGK 4/2.5 5,000 ML CRRT SCH ×2 (00:19→01:46)
[2021-08-28] MEDS: MEROPENEM IVP SCH ×3 (02:13→17:06)
[2021-08-28] MEDS: SODIUM CHLORIDE 0.9% IVP SCH ×3 (02:13→17:06)
[2021-08-28 04:26] LABS: VBG Ionized Calcium 1.07 mmol/L (1.15-1.35)
[2021-08-28 04:39] LABS: Eosinophils % 0.2 %
[2021-08-28 04:41] LABS: Basophils # 0.1 K/mcL (0.0-0.2); Basophils % 0.4 %; Hematocrit 29.4 % (35.3-44.9); Immature Granulocytes % 1.4 % (0-4); Immature Platelets 16.6 % (1.1-6.1); Lymphocytes # 1.4 K/mcL (0.6-4.6); Mean Corpuscular HGB Conc 30.6 g/dL (31.6-35.5); Mean Corpuscular Hemoglobin 23.7 pg (28.0-33.3); Mean Corpuscular Volume 77.4 fL (83.0-100.0); Monocytes % 16.2 %; Neutrophils # 12.5 K/mcL (1.6-8.9); Nucleated Red Blood Cells 0.2 /100 WBC (0); Platelet Count 176 K/mcL (140-400); Red Cell Distribution Width 19.6 % (11.5-14.5); Segmented Neutrophils % 73.8 %; White Blood Count 16.9 K/mcL (4.3-11.1)
[2021-08-28 04:54] LABS: Albumin 2.2 g/dL (3.5-5.7); Albumin/Globulin Ratio 0.8 (1.1-2.2); Bilirubin,Direct 0.2 mg/dL (0.0-0.2); Bilirubin,Indirect 0.3 mg/dL (0.0-1.0); Bilirubin,Total 0.5 mg/dL (0.3-1.0); Calcium 7.9 mg/dL (8.6-10.3); Globulin 2.9 g/dL (2.4-3.5); Magnesium 2.3 mg/dL (1.6-2.6); Phosphorous 4.2 mg/dL (2.7-4.5); Potassium 5.1 mEq/L (3.5-5.1); Total Protein 5.1 g/dL (6.4-8.9)
[2021-08-28] MEDS: Norepinephrine 32 MG/250 ML IV.SOLN IVC SCH ×2 (05:09→10:39)
[2021-08-28 05:25] LABS: Monocytes # 2.7 K/mcL (0.0-1.3)
[2021-08-28 05:26] LABS: Anisocytosis 2+ (Not Present); Large Platelets Present (Not Present); Microcytosis Present (Not Present); Platelet Estimate Normal (Normal)
[2021-08-28] MEDS: *HR* Heparin 5,000 UNIT/ML VIAL SQ SCH ×2 (05:26→17:04)
[2021-08-28] MEDS: Pantoprazole 40 MG VIAL IVP SCH (07:27)
[2021-08-28] MEDS: Chlorhexidine Rinse 15 ML MOUTHWASH MM SCH ×2 (07:27→19:48)
[2021-08-28] MEDS: Nystatin POWDER 30 GM BOTTLE TP SCH ×2 (07:28→19:49)
[2021-08-28] MEDS: Calcium Gluconate 1gm/50mL 1 GM/50 ML BAG IVPB SCH ×2 (07:34→07:59)
[2021-08-28] MEDS: *HR* Metoprolol 5 MG/5 ML VIAL IVP PRN (07:49)
[2021-08-28] MEDS ORDERED: Dextrose Gel 15 GM/37.5 ML TUBE PO PRN ×2 (10:11)
[2021-08-28] MEDS ORDERED: D5% in Water 1,000 ML IVC PRN (10:11)
[2021-08-28] MEDS ORDERED: *HR* Dextrose 50 % in Water (Syg) 50 ML SYRINGE IVP PRN (10:11)
[2021-08-28] MEDS: Insulin LISPRO 300 UNITS/3 ML VIAL SUBQ SCH ×3 (11:07→23:43)
[2021-08-28] MEDS: Phenylephrine 100 MG in 0.9 % Sodium Chloride 250 ML IVC SCH (23:43)
[2021-08-29] MEDS: Artificial Tears SOLN 15 ML BOTTLE BOTH EYES SCH ×5 (03:44→20:16)
[2021-08-29 04:20] LABS: Basophils # 0.1 K/mcL (0.0-0.2); Basophils % 0.4 %; Eosinophils % 0.2 %; Hematocrit 25.2 % (35.3-44.9); Immature Granulocytes % 2.6 % (0-4); Lymphocytes # 1.7 K/mcL (0.6-4.6); Lymphocytes % 9.7 %; Mean Corpuscular HGB Conc 29.4 g/dL (31.6-35.5); Mean Corpuscular Hemoglobin 23.6 pg (28.0-33.3); Mean Corpuscular Volume 80.5 fL (83.0-100.0); Mean Platelet Volume 13.1 fL (9.4-12.4); Monocytes # 1.9 K/mcL (0.0-1.3); Monocytes % 10.8 %; Nucleated Red Blood Cells 0.3 /100 WBC (0); Platelet Count 198 K/mcL (140-400); Red Blood Count 3.13 M/mcL (3.82-4.97); Red Cell Distribution Width 19.8 % (11.5-14.5); Segmented Neutrophils % 76.3 %; White Blood Count 17.9 K/mcL (4.3-11.1)
[2021-08-29 04:22] LABS: Hemoglobin 7.4 g/dL (11.5-15.4); Neutrophils # 13.7 K/mcL (1.6-8.9)
[2021-08-29 04:34] LABS: Albumin 2.3 g/dL (3.5-5.7); Albumin/Globulin Ratio 0.9 (1.1-2.2); Bilirubin,Direct 0.1 mg/dL (0.0-0.2); Bilirubin,Indirect 0.3 mg/dL (0.0-1.0); Bilirubin,Total 0.4 mg/dL (0.3-1.0); Calcium 8.2 mg/dL (8.6-10.3); Globulin 2.6 g/dL (2.4-3.5); Magnesium 2.6 mg/dL (1.6-2.6); Phosphorous 6.1 mg/dL (2.7-4.5); Potassium 5.5 mEq/L (3.5-5.1); Total Protein 4.9 g/dL (6.4-8.9)
[2021-08-29] MEDS: Insulin LISPRO 300 UNITS/3 ML VIAL SUBQ SCH ×5 (06:14→20:16)
[2021-08-29] MEDS: *HR* Heparin 5,000 UNIT/ML VIAL SQ SCH ×2 (06:14→17:42)
[2021-08-29] MEDS: Pantoprazole 40 MG VIAL IVP SCH (07:21)
[2021-08-29] MEDS: *HR* Metoprolol 5 MG/5 ML VIAL IVP PRN (07:22)
[2021-08-29] MEDS: Nystatin POWDER 30 GM BOTTLE TP SCH ×2 (07:22→20:15)
[2021-08-29] MEDS: Chlorhexidine Rinse 15 ML MOUTHWASH MM SCH ×2 (07:22→20:16)
[2021-08-29] MEDS ORDERED: Calcium Gluconate 1gm/50mL 1 GM/50 ML BAG IVPB ONE (07:25)
[2021-08-29] MEDS ORDERED: Insulin Human Regular 10 UNIT in 0.9 % Sodium Chloride 10 ML IV ONE (07:25)
[2021-08-29] MEDS ORDERED: 0.9 % Sodium Chloride 250 ML IVC PRN (08:18)
[2021-08-29] MEDS ORDERED: 0.9 % Sodium Chloride 2,000 ML PRIME SCH (08:30)
[2021-08-29] MEDS ORDERED: *HR* Heparin 10,000 UNIT/10 ML VIAL IV PRN (09:56)
[2021-08-29 10:37] LABS: Hematocrit 24.7 % (35.3-44.9); Hemoglobin 7.3 g/dL (11.5-15.4)
[2021-08-29 10:51] LABS: Calcium 8.2 mg/dL (8.6-10.3); Potassium 5.9 mEq/L (3.5-5.1)
[2021-08-29 11:19] LABS: Hepatitis B Surface Antibody < 3.10 mIU/mL
[2021-08-29 11:29] LABS: Hepatitis B Surface Antigen Nonreactive (Nonreactive)
[2021-08-29] MEDS ORDERED: Albumin 25% 25gram/100mL 25 GM/100 ML IV.SOLN IVPB ONE (11:46)
[2021-08-29] MEDS: Norepinephrine 32 MG/250 ML IV.SOLN IVC SCH (11:50)
[2021-08-30] MEDS: Artificial Tears SOLN 15 ML BOTTLE BOTH EYES SCH ×7 (00:24→23:14)
[2021-08-30] MEDS: Insulin LISPRO 300 UNITS/3 ML VIAL SUBQ SCH ×6 (00:25→20:40)
[2021-08-30 04:46] LABS: Basophils # 0.1 K/mcL (0.0-0.2); Basophils % 0.4 %; Eosinophils # 0.2 K/mcL (0.0-0.6); Eosinophils % 0.8 %; Hematocrit 23.6 % (35.3-44.9); Hemoglobin 7.1 g/dL (11.5-15.4); Immature Granulocytes % 4.4 % (0-4); Lymphocytes # 2.3 K/mcL (0.6-4.6); Mean Corpuscular HGB Conc 30.1 g/dL (31.6-35.5); Mean Corpuscular Hemoglobin 23.9 pg (28.0-33.3); Mean Corpuscular Volume 79.5 fL (83.0-100.0); Mean Platelet Volume 12.7 fL (9.4-12.4); Monocytes # 1.5 K/mcL (0.0-1.3); Monocytes % 7.7 %; Neutrophils # 14.5 K/mcL (1.6-8.9); Nucleated Red Blood Cells 0.1 /100 WBC (0); Platelet Count 271 K/mcL (140-400); Red Blood Count 2.97 M/mcL (3.82-4.97); Red Cell Distribution Width 19.6 % (11.5-14.5); Segmented Neutrophils % 74.7 %; White Blood Count 19.4 K/mcL (4.3-11.1)
[2021-08-30 04:48] LABS: VBG Ionized Calcium 1.09 mmol/L (1.15-1.35)
[2021-08-30 05:03] LABS: Albumin 2.2 g/dL (3.5-5.7); Albumin/Globulin Ratio 0.8 (1.1-2.2); Bilirubin,Direct 0.2 mg/dL (0.0-0.2); Bilirubin,Indirect 0.2 mg/dL (0.0-1.0); Bilirubin,Total 0.4 mg/dL (0.3-1.0); Calcium 8.2 mg/dL (8.6-10.3); Globulin 2.9 g/dL (2.4-3.5); Magnesium 2.6 mg/dL (1.6-2.6); Phosphorous 6.8 mg/dL (2.7-4.5); Potassium 5.2 mEq/L (3.5-5.1); Total Protein 5.1 g/dL (6.4-8.9)
[2021-08-30] MEDS: Phenylephrine 100 MG in 0.9 % Sodium Chloride 250 ML IVC SCH (05:24)
[2021-08-30] MEDS: *HR* Heparin 5,000 UNIT/ML VIAL SQ SCH ×2 (05:26→16:49)
[2021-08-30] MEDS: Pantoprazole 40 MG VIAL IVP SCH (07:11)
[2021-08-30] MEDS: Chlorhexidine Rinse 15 ML MOUTHWASH MM SCH ×2 (07:11→19:39)
[2021-08-30] MEDS: Nystatin POWDER 30 GM BOTTLE TP SCH ×2 (07:12→20:39)
[2021-08-30] MEDS ORDERED: Insulin DETEMIR 100 UNIT/ML X5UNITS SUBQ SCH (09:00)
[2021-08-30] MEDS: Insulin DETEMIR 100 UNIT/ML X5UNITS SUBQ SCH ×2 (09:12→20:39)
[2021-08-30] MEDS: cefTRIAXone 1,000 MG in Water for inj. (sterile) 10 ML IVP SCH (11:47)
[2021-08-30] MEDS: MetroNIDAZOLE 500 MG/100 ML 500 MG/100 ML BAG IVPB SCH ×2 (11:47→18:06)
[2021-08-30] MEDS: PrismaSATE BGK 4/2.5 5,000 ML CRRT SCH ×2 (13:04)
[2021-08-30] MEDS: Norepinephrine 32 MG/250 ML IV.SOLN IVC SCH (13:04)
[2021-08-30 19:08] LABS: Hematocrit 21.5 % (35.3-44.9); Hemoglobin 6.5 g/dL (11.5-15.4)
[2021-08-31] MEDS: Insulin LISPRO 300 UNITS/3 ML VIAL SUBQ SCH ×6 (01:39→20:31)
[2021-08-31] MEDS: Artificial Tears SOLN 15 ML BOTTLE BOTH EYES SCH ×2 (04:09→08:25)
[2021-08-31] MEDS: Phenylephrine 100 MG in 0.9 % Sodium Chloride 250 ML IVC SCH (04:10)
[2021-08-31 04:12] LABS: VBG Ionized Calcium 0.92 mmol/L (1.15-1.35)
[2021-08-31 04:20] LABS: Hematocrit 23.6 % (35.3-44.9); Hemoglobin 7.2 g/dL (11.5-15.4); Mean Corpuscular HGB Conc 30.5 g/dL (31.6-35.5); Mean Corpuscular Hemoglobin 23.7 pg (28.0-33.3); Mean Corpuscular Volume 77.6 fL (83.0-100.0); Mean Platelet Volume 12.3 fL (9.4-12.4); Nucleated Red Blood Cells 0.2 /100 WBC (0); Platelet Count 280 K/mcL (140-400); Red Blood Count 3.04 M/mcL (3.82-4.97); Red Cell Distribution Width 19.1 % (11.5-14.5); White Blood Count 20.4 K/mcL (4.3-11.1)
[2021-08-31] MEDS: MetroNIDAZOLE 500 MG/100 ML 500 MG/100 ML BAG IVPB SCH ×3 (04:27→17:39)
[2021-08-31] MEDS: *HR* Heparin 5,000 UNIT/ML VIAL SQ SCH ×2 (04:28→17:39)
[2021-08-31 04:38] LABS: Albumin 2.2 g/dL (3.5-5.7); Albumin/Globulin Ratio 0.7 (1.1-2.2); Bilirubin,Direct 0.1 mg/dL (0.0-0.2); Bilirubin,Indirect 0.3 mg/dL (0.0-1.0); Bilirubin,Total 0.4 mg/dL (0.3-1.0); Calcium 7.5 mg/dL (8.6-10.3); Globulin 3.2 g/dL (2.4-3.5); Magnesium 2.7 mg/dL (1.6-2.6); Phosphorous 7.1 mg/dL (2.7-4.5); Potassium 5.7 mEq/L (3.5-5.1); Total Protein 5.4 g/dL (6.4-8.9)
[2021-08-31 04:52] LABS: Anisocytosis 1+ (Not Present); Eosinophils # 0.4 K/mcL (0.0-0.6); Hypochromasia Present (Not Present); Platelet Estimate Normal (Normal); Polychromasia 1+ (Not Present)
[2021-08-31] MEDS: Insulin DETEMIR 100 UNIT/ML X5UNITS SUBQ SCH ×2 (08:18→20:30)
[2021-08-31] MEDS: Chlorhexidine Rinse 15 ML MOUTHWASH MM SCH (08:19)
[2021-08-31] MEDS: Pantoprazole 40 MG VIAL IVP SCH (08:20)
[2021-08-31] MEDS: Nystatin POWDER 30 GM BOTTLE TP SCH ×2 (08:20→20:31)
[2021-08-31] MEDS: cefTRIAXone 1,000 MG in Water for inj. (sterile) 10 ML IVP SCH (08:21)
[2021-08-31] MEDS ORDERED: CefTRIAXone 1,000 MG VIAL ONE (08:22)
[2021-08-31] MEDS ORDERED: *HR* Heparin 10,000 UNIT/10 ML VIAL IV PRN (09:09)
[2021-08-31] MEDS ORDERED: 0.9 % Sodium Chloride 250 ML IVC PRN (09:09)
[2021-08-31] MEDS ORDERED: Iopamidol - 370 500 ML MLS PO ONE (09:44)
[2021-08-31] MEDS: Acetaminophen IV 1,000 MG/100 ML BAG IVPB PRN (09:54)
[2021-08-31] MEDS: Magic Mouthwash 10 ML UD Cup PO SCH ×2 (14:30→16:14)
[2021-08-31] MEDS: Morphine Sulfate 2 MG/ML SYRINGE IVP PRN (16:06)
[2021-08-31 18:44] LABS: Bacteria,Urine Few per hpf (None-Few); Bilirubin,Urine Negative (Negative); Blood,Urine Large (Negative); Budding Yeast,Urine Many per hpf (None Seen); Clarity,Urine Ex.Turbid (Clear); Color,Urine Yellow (Yellow); Glucose,Urine (UA) 50 mg/dL (Normal); Ketones,Urine Negative (Negative); Leukocyte Esterase,Urine Large (Negative); Nitrite,Urine Negative (Negative); Protein,Urine >=300 mg/dL (Neg-Trace); RBC,Urine TNTC per hpf (0-3); Specific Gravity,Urine 1.022 (1.010-1.025); WBC,Urine TNTC per hpf (0-3)
[2021-09-01] MEDS: Insulin LISPRO 300 UNITS/3 ML VIAL SUBQ SCH ×6 (01:01→20:10)
[2021-09-01] MEDS: MetroNIDAZOLE 500 MG/100 ML 500 MG/100 ML BAG IVPB SCH ×3 (03:05→17:41)
[2021-09-01 04:32] LABS: Basophils # 0.1 K/mcL (0.0-0.2); Basophils % 0.5 %; Eosinophils # 0.2 K/mcL (0.0-0.6); Eosinophils % 0.9 %; Hematocrit 22.1 % (35.3-44.9); Hemoglobin 6.6 g/dL (11.5-15.4); Immature Granulocytes % 7.1 % (0-4); Lymphocytes # 1.9 K/mcL (0.6-4.6); Lymphocytes % 9.7 %; Mean Corpuscular HGB Conc 29.9 g/dL (31.6-35.5); Mean Corpuscular Hemoglobin 23.7 pg (28.0-33.3); Mean Corpuscular Volume 79.5 fL (83.0-100.0); Mean Platelet Volume 12.1 fL (9.4-12.4); Monocytes # 1.2 K/mcL (0.0-1.3); Monocytes % 5.8 %; Neutrophils # 15.2 K/mcL (1.6-8.9); Nucleated Red Blood Cells 0.1 /100 WBC (0); Platelet Count 276 K/mcL (140-400); Red Blood Count 2.78 M/mcL (3.82-4.97); Red Cell Distribution Width 19.2 % (11.5-14.5)
[2021-09-01 04:43] LABS: Calcium 7.3 mg/dL (8.6-10.3); Potassium 5.1 mEq/L (3.5-5.1)
[2021-09-01] MEDS ORDERED: 0.9 % Sodium Chloride 250 ML IVC SCH (04:45)
[2021-09-01] MEDS: *HR* Heparin 5,000 UNIT/ML VIAL SQ SCH ×2 (05:05→17:41)
[2021-09-01 05:21] LABS: Anisocytosis 1+ (Not Present); Hypochromasia Present (Not Present); Microcytosis Present (Not Present)
[2021-09-01 05:22] LABS: Platelet Estimate Normal (Normal)
[2021-09-01] MEDS: Magic Mouthwash 10 ML UD Cup PO SCH ×3 (08:27→16:42)
[2021-09-01] MEDS: Nystatin POWDER 30 GM BOTTLE TP SCH ×2 (08:32→20:11)
[2021-09-01] MEDS: cefTRIAXone 1,000 MG in Water for inj. (sterile) 10 ML IVP SCH (08:33)
[2021-09-01] MEDS: Pantoprazole 40 MG VIAL IVP SCH (08:33)
[2021-09-01] MEDS: Insulin DETEMIR 100 UNIT/ML X5UNITS SUBQ SCH ×2 (09:01→20:10)
[2021-09-01] MEDS: Acetaminophen IV 1,000 MG/100 ML BAG IVPB PRN (10:07)
[2021-09-01] MEDS: Furosemide 240 MG in 0.9 % Sodium Chloride 96 ML IVC SCH (10:07)
[2021-09-01] MEDS: Albumin 25% 12.5gm/50mL 12.5 GM/50 ML IV.SOLN IVPB SCH (16:35)
[2021-09-01 18:25] LABS: Hematocrit 25.4 % (35.3-44.9); Hemoglobin 7.7 g/dL (11.5-15.4)
[2021-09-01] MEDS: Morphine Sulfate 2 MG/ML SYRINGE IVP PRN (20:49)
[2021-09-02] MEDS: Insulin LISPRO 300 UNITS/3 ML VIAL SUBQ SCH ×6 (00:02→21:15)
[2021-09-02] MEDS: Albumin 25% 12.5gm/50mL 12.5 GM/50 ML IV.SOLN IVPB SCH ×3 (00:02→15:07)
[2021-09-02] MEDS: MetroNIDAZOLE 500 MG/100 ML 500 MG/100 ML BAG IVPB SCH ×3 (03:14→20:18)
[2021-09-02 03:46] LABS: VBG Ionized Calcium 0.92 mmol/L (1.15-1.35)
[2021-09-02 04:22] LABS: Basophils # 0.1 K/mcL (0.0-0.2); Basophils % 0.6 %; Eosinophils # 0.2 K/mcL (0.0-0.6); Eosinophils % 1.1 %; Hematocrit 24.9 % (35.3-44.9); Hemoglobin 7.4 g/dL (11.5-15.4); Immature Granulocytes % 8.1 % (0-4); Lymphocytes # 1.5 K/mcL (0.6-4.6); Lymphocytes % 8.7 %; Mean Corpuscular HGB Conc 29.7 g/dL (31.6-35.5); Mean Corpuscular Hemoglobin 24.4 pg (28.0-33.3); Mean Corpuscular Volume 82.2 fL (83.0-100.0); Monocytes # 0.8 K/mcL (0.0-1.3); Monocytes % 4.4 %; Nucleated Red Blood Cells 0.1 /100 WBC (0); Platelet Count 280 K/mcL (140-400); Red Blood Count 3.03 M/mcL (3.82-4.97); Red Cell Distribution Width 19.3 % (11.5-14.5); Segmented Neutrophils % 77.1 %; White Blood Count 17.7 K/mcL (4.3-11.1)
[2021-09-02 04:24] LABS: Neutrophils # 13.7 K/mcL (1.6-8.9)
[2021-09-02 04:51] LABS: Albumin 2.3 g/dL (3.5-5.7); Albumin/Globulin Ratio 0.8 (1.1-2.2); Bilirubin,Total 0.3 mg/dL (0.3-1.0); Calcium 7.1 mg/dL (8.6-10.3); Globulin 2.8 g/dL (2.4-3.5); Magnesium 2.4 mg/dL (1.6-2.6); Total Protein 5.1 g/dL (6.4-8.9)
[2021-09-02 05:04] LABS: Anisocytosis 1+ (Not Present); Hypochromasia Present (Not Present); Platelet Estimate Normal (Normal)
[2021-09-02 05:05] LABS: Polychromasia 1+ (Not Present)
[2021-09-02] MEDS: Furosemide 240 MG in 0.9 % Sodium Chloride 96 ML IVC SCH (06:35)
[2021-09-02] MEDS: *HR* Heparin 5,000 UNIT/ML VIAL SQ SCH ×2 (06:35→17:55)
[2021-09-02] MEDS: Pantoprazole 40 MG VIAL IVP SCH (07:44)
[2021-09-02] MEDS: Magic Mouthwash 10 ML UD Cup PO SCH ×2 (07:44→11:00)
[2021-09-02] MEDS: cefTRIAXone 1,000 MG in Water for inj. (sterile) 10 ML IVP SCH (07:45)
[2021-09-02] MEDS: Nystatin POWDER 30 GM BOTTLE TP SCH ×2 (07:46→21:15)
[2021-09-02] MEDS: Insulin DETEMIR 100 UNIT/ML X5UNITS SUBQ SCH ×2 (07:47→21:15)
[2021-09-02] MEDS ORDERED: 0.9 % Sodium Chloride 250 ML IVC PRN (08:42)
[2021-09-02] MEDS ORDERED: *HR* Heparin 10,000 UNIT/10 ML VIAL IV PRN (08:42)
[2021-09-02 11:41] LABS: Phosphorous 7.7 mg/dL (2.7-4.5)
[2021-09-03] MEDS: Albumin 25% 12.5gm/50mL 12.5 GM/50 ML IV.SOLN IVPB SCH ×4 (00:27→23:44)
[2021-09-03] MEDS: Insulin LISPRO 300 UNITS/3 ML VIAL SUBQ SCH ×7 (00:27→23:44)
[2021-09-03] MEDS: MetroNIDAZOLE 500 MG/100 ML 500 MG/100 ML BAG IVPB SCH ×3 (03:58→18:21)
[2021-09-03 04:10] LABS: Basophils # 0.1 K/mcL (0.0-0.2); Basophils % 0.4 %; Eosinophils # 0.2 K/mcL (0.0-0.6); Eosinophils % 0.9 %; Hematocrit 24.5 % (35.3-44.9); Hemoglobin 7.3 g/dL (11.5-15.4); Immature Granulocytes % 6.2 % (0-4); Lymphocytes # 1.5 K/mcL (0.6-4.6); Lymphocytes % 8.3 %; Mean Corpuscular HGB Conc 29.8 g/dL (31.6-35.5); Mean Corpuscular Hemoglobin 24.8 pg (28.0-33.3); Mean Corpuscular Volume 83.3 fL (83.0-100.0); Mean Platelet Volume 11.6 fL (9.4-12.4); Monocytes # 0.9 K/mcL (0.0-1.3); Monocytes % 4.8 %; Neutrophils # 14.2 K/mcL (1.6-8.9); Platelet Count 275 K/mcL (140-400); Red Blood Count 2.94 M/mcL (3.82-4.97); Red Cell Distribution Width 19.5 % (11.5-14.5); Segmented Neutrophils % 79.4 %; White Blood Count 17.9 K/mcL (4.3-11.1)
[2021-09-03 04:29] LABS: Calcium 7.5 mg/dL (8.6-10.3); Magnesium 2.1 mg/dL (1.6-2.6); Potassium 4.4 mEq/L (3.5-5.1)
[2021-09-03] MEDS: *HR* Heparin 5,000 UNIT/ML VIAL SQ SCH ×2 (05:20→18:21)
[2021-09-03] MEDS: Nystatin POWDER 30 GM BOTTLE TP SCH ×2 (07:55→20:33)
[2021-09-03] MEDS: Insulin DETEMIR 100 UNIT/ML X5UNITS SUBQ SCH ×2 (07:55→20:27)
[2021-09-03] MEDS: Pantoprazole 40 MG VIAL IVP SCH (07:56)
[2021-09-03] MEDS: cefTRIAXone 1,000 MG in Water for inj. (sterile) 10 ML IVP SCH (07:56)
[2021-09-03] MEDS ORDERED: Insulin DETEMIR 100 UNIT/ML X5UNITS SUBQ ONE (12:00)
[2021-09-03] MEDS ORDERED: Saline Nasal Spray 44 ML BOTTLE NS PRN (12:01)
[2021-09-03] MEDS: Chlorhexidine Rinse 15 ML MOUTHWASH MM SCH ×2 (12:17→20:27)
[2021-09-04] MEDS: MetroNIDAZOLE 500 MG/100 ML 500 MG/100 ML BAG IVPB SCH (03:32)
[2021-09-04 04:14] LABS: Basophils # 0.1 K/mcL (0.0-0.2); Basophils % 0.5 %; Eosinophils # 0.2 K/mcL (0.0-0.6); Eosinophils % 1.2 %; Hemoglobin 7.3 g/dL (11.5-15.4); Immature Granulocytes % 4.2 % (0-4); Lymphocytes # 1.7 K/mcL (0.6-4.6); Lymphocytes % 9.1 %; Mean Corpuscular HGB Conc 29.2 g/dL (31.6-35.5); Mean Corpuscular Hemoglobin 24.5 pg (28.0-33.3); Mean Corpuscular Volume 83.9 fL (83.0-100.0); Mean Platelet Volume 11.6 fL (9.4-12.4); Monocytes # 0.8 K/mcL (0.0-1.3); Monocytes % 4.6 %; Neutrophils # 14.7 K/mcL (1.6-8.9); Platelet Count 287 K/mcL (140-400); Red Blood Count 2.98 M/mcL (3.82-4.97); Red Cell Distribution Width 19.6 % (11.5-14.5); Segmented Neutrophils % 80.4 %; White Blood Count 18.2 K/mcL (4.3-11.1)
[2021-09-04 04:31] LABS: Calcium 7.4 mg/dL (8.6-10.3); Magnesium 2.2 mg/dL (1.6-2.6)
[2021-09-04] MEDS: Insulin LISPRO 300 UNITS/3 ML VIAL SUBQ SCH ×4 (04:34→16:31)
[2021-09-04] MEDS: *HR* Heparin 5,000 UNIT/ML VIAL SQ SCH (06:06)
[2021-09-04] MEDS: Chlorhexidine Rinse 15 ML MOUTHWASH MM SCH (08:23)
[2021-09-04] MEDS: cefTRIAXone 1,000 MG in Water for inj. (sterile) 10 ML IVP SCH (08:23)
[2021-09-04] MEDS: Nystatin POWDER 30 GM BOTTLE TP SCH (08:23)
[2021-09-04] MEDS: Pantoprazole 40 MG VIAL IVP SCH (08:23)
[2021-09-04] MEDS: Albumin 25% 12.5gm/50mL 12.5 GM/50 ML IV.SOLN IVPB SCH ×2 (08:24→16:12)
[2021-09-04] MEDS: Insulin DETEMIR 100 UNIT/ML X5UNITS SUBQ SCH (08:25)
[2021-09-04] MEDS ORDERED: *HR* Heparin 10,000 UNIT/10 ML VIAL IV PRN (09:03)
[2021-09-04] MEDS ORDERED: 0.9 % Sodium Chloride 250 ML IVC PRN (09:03)
[2021-09-04] MEDS ORDERED: FLUoxetine 20 MG CAPSULE PO SCH (10:45)
[2021-09-04 11:54] VITALS: TEMP 98
[2021-09-04 14:02] VITALS: O2SAT 97
[2021-09-04] MEDS ORDERED: *HR* Heparin 5,000 UNIT/ML VIAL SQ SCH (14:30)
[2021-09-04 16:16] VITALS: BP 114/63; PULSE 95
== END 2021-09-04 17:21 | disposition short-term general hospital (02) | DRG 420 ==
LOC: ICNU 13:21 → EMEROOARM 13:21 → MERGE 17:43 → ICNU 18:00
PROVIDERS: ADMIT Internal Medicine; ATTEND Internal Medicine